=== PATIENT | female | born 1975 | race Caucasian/White ===

== ENCOUNTER 2020-06-06 13:07 | Emergency (ER) | payer OTHER ==
[~2020-06-06] VITALS: Ht 154.9 cm; Wt 79.5 kg
[2020-06-06] MEDS ORDERED: ASPIRIN 81 MG CHEWABLE TABLET PO ONE (14:00)
[2020-06-06 14:20] LABS: BASOPHILS % (AUTO) 0.6 % (0.0-2.0); HEMATOCRIT 39.3 % (36-46); HEMOGLOBIN 13.3 g/dL (12.0-16.0); LYMPHOCYTES # (AUTO) 1.7 K/uL (1.0-4.8); LYMPHOCYTES % (AUTO) 32.8 % (22.0-44.0); MEAN CORPUSCULAR HEMOGLOBIN 30.9 pg (26.0-34.0); MEAN CORPUSCULAR HGB CONC 33.9 G/dL (31.0-37.0); MEAN CORPUSCULAR VOLUME 91 fL (80-100); MONOCYTES # (AUTO) 0.3 K/uL (0.1-1.0); MONOCYTES % (AUTO) 6.6 % (2.0-9.0); PLATELET COUNT (AUTO) 250 K/uL (150-450); RED BLOOD CELL COUNT(AUTO) 4.32 MIL/uL (4.00-5.20); RED CELL DISTRIBUTION WIDTH 13.4 % (11.5-14.5)
[2020-06-06 14:25] LABS: COVID AG,FIA SOURCE NASOPHARYNGEAL
[2020-06-06 14:29] LABS: ANION GAP 8 mmol/L (8-16); CALCIUM, TOTAL 8.9 mg/dL (8.8-10.5); CARBON DIOXIDE 29 mmol/L (22-29); CHLORIDE 103 mmol/L (98-107); CREATININE 0.65 mg/dL (0.60-1.30); GLOMERULAR FILTR. RATE CALC > 60 mL/min (>60); GLUCOSE,RANDOM 95 mg/dL (70-110); POTASSIUM 3.9 mmol/L (3.5-5.1); SODIUM SERUM 140 mmol/L (136-145); UREA NITROGEN, BLOOD 14 mg/dL (7-18)
[2020-06-06 14:34] LABS: D-DIMER 0.29 mg/L FEU (0.00-0.50); PROTHROMBIN TIME 10.3 SEC (9.4-11.6)
[2020-06-06 14:43] LABS: B-TYPE NATRIURETIC PEPTIDE 52 pg/mL (0-100)
[2020-06-06 14:52] LABS: ALANINE AMINOTRANSFERASE 44 U/L (12-78); ALBUMIN 3.8 g/dL (3.4-5.0); ALKALINE PHOSPHATASE 102 U/L (46-116); ASPARTATE AMINOTRANSFERASE 31 U/L (15-37); BILIRUBIN,TOTAL 0.2 mg/dL (0.1-1.0); CREATINE KINASE, TOTAL ONLY 125 U/L (26-192); HCG,QUANTITATIVE < 1 mIU/mL (0-6); LIPASE 80 U/L (73-393); TOTAL PROTEIN, SERUM 7.9 g/dL (6.4-8.2)
[2020-06-06] MEDS ORDERED: IBUPROFEN 600 MG TABLET PO ONE (15:45)
[2020-06-06 15:55] VITALS: BP 133/67
== END 2020-06-06 16:15 | disposition home or self-care (01) ==
LOC: EMS 13:07
DX: R07.89 Other chest pain (principal); R05 Cough; Z20.822 Contact with and (suspected) exposure to COVID-19; Z88.0 Allergy status to penicillin
CPT/HCPCS: 36415; 71045; 80053; 82550; 83690; 83880; 84484; 84702; 85025; 85379; 85610; 85730; 87426; 93005; 99285; U0003

== ENCOUNTER 2021-07-20 02:35 | Emergency (ER) | payer OTHER ==
[~2021-07-20] VITALS: Ht 160 cm; Wt 75.0 kg
[2021-07-20 03:39] LABS: BASOPHILS % (AUTO) 0.7 % (0.0-2.0); EOSINOPHILS % (AUTO) 2.4 % (1.0-6.0); HEMATOCRIT 38.2 % (36-46); HEMOGLOBIN 13.2 g/dL (12.0-16.0); LYMPHOCYTES # (AUTO) 1.8 K/uL (1.0-4.8); LYMPHOCYTES % (AUTO) 35.5 % (22.0-44.0); MEAN CORPUSCULAR HEMOGLOBIN 31.1 pg (26.0-34.0); MEAN CORPUSCULAR HGB CONC 34.7 G/dL (31.0-37.0); MEAN CORPUSCULAR VOLUME 90 fL (80-100); MONOCYTES # (AUTO) 0.4 K/uL (0.1-1.0); NEUTROPHILS # (AUTO) 2.8 K/uL (1.8-7.7); NEUTROPHILS % (AUTO) 53.4 % (40.0-70.0); PLATELET COUNT (AUTO) 244 K/uL (150-450); RED BLOOD CELL COUNT(AUTO) 4.26 MIL/uL (4.00-5.20); RED CELL DISTRIBUTION WIDTH 13.1 % (11.5-14.5)
[2021-07-20 03:48] LABS: ANION GAP 8 mmol/L (8-16); CALCIUM, TOTAL 9.3 mg/dL (8.8-10.5); CARBON DIOXIDE 29 mmol/L (22-29); CHLORIDE 104 mmol/L (98-107); CREATININE 0.66 mg/dL (0.60-1.30); GLOMERULAR FILTR. RATE CALC > 60 mL/min (>60); GLUCOSE,RANDOM 112 mg/dL (70-110); POTASSIUM 4.1 mmol/L (3.5-5.1); SODIUM SERUM 141 mmol/L (136-145); UREA NITROGEN, BLOOD 13 mg/dL (7-18)
[2021-07-20 03:55] LABS: ALANINE AMINOTRANSFERASE 27 U/L (12-78); ALBUMIN 3.9 g/dL (3.4-5.0); ALKALINE PHOSPHATASE 104 U/L (46-116); ASPARTATE AMINOTRANSFERASE 19 U/L (15-37); BILIRUBIN,TOTAL 0.2 mg/dL (0.1-1.0); TOTAL PROTEIN, SERUM 7.9 g/dL (6.4-8.2)
[2021-07-20] MEDS ORDERED: BEMP180T PO (04:24)
[2021-07-20] MEDS ORDERED: AMLO2.5T96 PO (04:24)
[2021-07-20 06:10] VITALS: BP 128/77
== END 2021-07-20 07:43 | disposition home or self-care (01) ==
LOC: EMS 02:36
DX: R07.89 Other chest pain (principal); E78.00 Pure hypercholesterolemia, unspecified; I10 Essential (primary) hypertension; R00.2 Palpitations; R20.2 Paresthesia of skin
CPT/HCPCS: 80053; 84484; 85025; 93005; 99284

== ENCOUNTER 2023-09-14 11:38 | Emergency (ER) | payer OTHER ==
[~2023-09-14] VITALS: Ht 152.4 cm; Wt 87.7 kg
[~2023-09-14 11:38] MED LIST: CEPH-558 PO
[2023-09-14 11:53] VITALS: TEMP 98.6
[2023-09-14 12:25] LABS: BASOPHILS % (AUTO) 0.4 % (0.0-2.0); EOSINOPHILS % (AUTO) 0.2 % (1.0-6.0); HEMATOCRIT 38.8 % (36-46); HEMOGLOBIN 12.8 g/dL (12.0-16.0); LYMPHOCYTES # (AUTO) 1.6 K/uL (1.0-4.8); LYMPHOCYTES % (AUTO) 21.9 % (22.0-44.0); MEAN CORPUSCULAR HEMOGLOBIN 30.2 pg (26.0-34.0); MEAN CORPUSCULAR HGB CONC 32.9 G/dL (31.0-37.0); MEAN CORPUSCULAR VOLUME 92 fL (80-100); MONOCYTES # (AUTO) 0.3 K/uL (0.1-1.0); MONOCYTES % (AUTO) 4.6 % (2.0-9.0); NEUTROPHILS # (AUTO) 5.3 K/uL (1.8-7.7); NEUTROPHILS % (AUTO) 72.9 % (40.0-70.0); PLATELET COUNT (AUTO) 233 K/uL (150-450); RED BLOOD CELL COUNT(AUTO) 4.23 MIL/uL (4.00-5.20); RED CELL DISTRIBUTION WIDTH 13.5 % (11.5-14.5); WHITE BLOOD COUNT (AUTO) 7.3 K/uL (4.5-11.0)
[2023-09-14 12:38] LABS: ANION GAP 10 mmol/L (8-16); CALCIUM, TOTAL 8.9 mg/dL (8.8-10.5); CARBON DIOXIDE 25 mmol/L (22-29); CHLORIDE 98 mmol/L (98-107); CREATININE 0.77 mg/dL (0.60-1.30); GLOMERULAR FILTR. RATE CALC > 60 mL/min (>60); GLUCOSE,RANDOM 101 mg/dL (70-110); POTASSIUM 3.9 mmol/L (3.5-5.1); SODIUM SERUM 133 mmol/L (136-145); UREA NITROGEN, BLOOD 7 mg/dL (7-18)
[2023-09-14 12:45] LABS: ALANINE AMINOTRANSFERASE 26 U/L (12-78); ALBUMIN 3.9 g/dL (3.4-5.0); ALKALINE PHOSPHATASE 126 U/L (46-116); ASPARTATE AMINOTRANSFERASE 23 U/L (15-37); BILIRUBIN,TOTAL 0.4 mg/dL (0.1-1.0); LIPASE 33 U/L (16-77)
[2023-09-14 12:46] LABS: APPEARANCE,URINE CLEAR (CLEAR); BILIRUBIN,URINE NEGATIVE (NEGATIVE); COLOR,URINE COLORLESS (YELLOW); GLUCOSE, URINE (UA) NEGATIVE (NEGATIVE); LEUKOCYTE ESTERASE ,URINE NEGATIVE (NEGATIVE); NITRATE,URINE NEGATIVE (NEGATIVE); OCCULT BLOOD,URINE NEGATIVE (NEGATIVE); PROTEIN,URINE NEGATIVE (NEGATIVE); SPECIFIC GRAVITIY, URINE 1.005 (1.003-1.030); UROBILINOGEN,URINE <=1.0 mg/dL (<=1.0)
[2023-09-14] MEDS ORDERED: IOHEXOL 350 MG/ML 100 ML VIAL ONE (12:50)
[2023-09-14] MEDS ORDERED: SODIUM CHLORIDE 0.9% 100 ML ONE (12:51)
[2023-09-14] MEDS: LORazepam 2 MG/ML VIAL IVP ONE (12:54)
[2023-09-14] MEDS: ACETAMINOPHEN 500 MG TABLET PO ONE (12:54)
[2023-09-14] MEDS: SODIUM CHLORIDE 0.9% 1,000 ML IV ONE (12:54)
[2023-09-14] MEDS: ONDANSETRON HCL 4 MG/2 ML VIAL IVP ONE (12:54)
[2023-09-14] MEDS: FAMOTIDINE 20 MG/2 ML VIAL IVP ONE (12:54)
[2023-09-14 13:06] LABS: PROTHROMBIN TIME 10.9 SEC (9.4-11.6)
[2023-09-14] MEDS ORDERED: ONDA-104 PO (13:09)
[2023-09-14] MEDS ORDERED: ACET-3385 PO (13:09)
[2023-09-14] MEDS ORDERED: LORA-1000 PO (16:49)
[2023-09-14] MEDS ORDERED: MAG30ORA11 PO (16:49)
[2023-09-14] MEDS ORDERED: OMEP20 PO (16:49)
[2023-09-14 16:55] VITALS: BP 134/80; PULSE 88; RESP 16
== END 2023-09-14 17:17 | disposition home or self-care (01) ==
LOC: EMS 11:41
DX: R10.13 Epigastric pain (principal); R07.89 Other chest pain; F41.9 Anxiety disorder, unspecified; Z88.0 Allergy status to penicillin
CPT/HCPCS: 99285; 74177; 96374; 96375; 96361; 80048; 80076; 81003; 83690; 84703; 85025; 85610; 85730; 36415; Q9967; J3490; J2060; J2405; J7030; J7050